=== PATIENT | male | born 1940 | race Caucasian/White ===

== ENCOUNTER → 2019-03-12 | Outpatient (CLI) | payer MEDICARE, OTHER ==
--- NOTE | 2019-03-12 10:57 | CT ---
EXAM DESCRIPTION: Head CLINICAL HISTORY: FALL COMPARISON: None available TECHNIQUE: Noncontrast head CT was performed with routine protocol. FINDINGS: Normal lang-white matter differentiation. Ventricles and sulci are normal for age. Low density areas in the white matter consistent with chronic microvascular ischemic disease. No high density hemorrhage, focal edema or shift of the midline. No sulcal effacement. Normal orbital contents. Basilar cisterns appear clear. Intact calvarium with no fracture or lytic lesion. Normal aeration of tympanic cavities and mastoid air cells. No fluid levels in the paranasal sinuses. Mild nodular mucosal thickening in the left maxillary sinus laterally. Skull base appears intact. Symmetrical internal auditory canals. IMPRESSION: No acute intracranial pathologic process. This exam was performed according to our departmental dose-optimization program, which includes automated exposure control, adjustment of the mA and/or kV according to patient size and/or use of iterative reconstruction technique. Total DLP equals Dose mGycm. Electronically signed by: Haider Chong MD 03/12/2019 10:55 AM [facility]
--- NOTE | 2019-03-12 11:05 | CT ---
EXAM DESCRIPTION: Maxillofacial CLINICAL HISTORY: 79 years Male, FACIAL INJURY COMPARISON: None. FINDINGS: Axial bone window images reveal intact mandible with normal TMJ alignment. Soft tissue swelling is seen in the right frontal/supraorbital region. Bone window images are negative for skull fracture in this area. No fracture of the right frontal sinus. Bony defect at the anterior nasal bone is seen but the appearance is more consistent with chronic abnormality than an acute nasal bone fracture. Intact anterior and posterior marsh of the maxillary sinuses with intact zygomatic arches. No fracture of the skull base. Coronal bone window images show no evidence of nasal bone fracture. No medial or inferior orbital blowout fracture. The globes appear intact. Normal orbital contents. Sagittal reformatted images show degenerative changes at the C1-2 level with normal craniocervical alignment. Patient is edentulous. No mandibular or maxillary fracture is seen on the sagittal images. IMPRESSION: No acute fracture of the facial bones. This exam was performed according to our departmental dose-optimization program, which includes automated exposure control, adjustment of the mA and/or kV according to patient size and/or use of iterative reconstruction technique.. Electronically signed by: Haider Chong MD 03/12/2019 11:02 AM [facility]
--- NOTE | 2019-03-12 11:06 | CT ---
EXAM DESCRIPTION: Cervical Spine CLINICAL HISTORY: CERVICAL RADICULOPATY COMPARISON: None Available. TECHNIQUE: Cervical CT is performed with thin-section axial imaging. MPRs are created and reviewed as well. FINDINGS: Axial bone window images reveal intact ring of C1. No abnormal widening of the atlantodens interval. No fracture of the vertebral bodies or transverse processes or posterior elements. Lung apices appear clear. No cervical mass or adenopathy. Sagittal reformatted images show normal alignment of vertebral bodies and facets. No jumped facet or facet fracture. Normal craniocervical alignment. No prevertebral soft tissue swelling. No a avulsion of the spinous processes. Spondylosis: Marked facet hypertrophic degenerative spurring. Multilevel disc/osteophyte complexes without high-grade spinal stenosis. Mild degenerative anterolisthesis of C3 on C4 and C5 on C6. Coronal reformatted images show normal atlantooccipital and atlantoaxial alignment. The base of the dens is intact as is the body of C2. Intact lateral masses. IMPRESSION: Negative for fracture or posttraumatic subluxation. Extensive degenerative changes as described. This exam was performed according to our departmental dose-optimization program, which includes automated exposure control, adjustment of the mA and/or kV according to patient size and/or use of iterative reconstruction technique. Total DLP equals 435.94 mGycm. Electronically signed by: Haider Chong MD 03/12/2019 11:05 AM [facility]
== END ==
LOC: CT 11:30
PROVIDERS: ATTEND General Practice
DX: M47.22 Other spondylosis with radiculopathy, cervical region (principal); S09.90XA Unspecified injury of head, initial encounter; S09.93XA Unspecified injury of face, initial encounter; W10.9XXA Fall (on) (from) unspecified stairs and steps, initial encounter